=== PATIENT | female | born 1990 | race Caucasian/White ===

== ENCOUNTER → 2016-11-25 | Outpatient (REF) | payer BC ==
[~2016-11-25] MED LIST: CIPR500T89 PO; FLOM5CAP PO; PERC5TAB6 PO
== END ==
LOC: M LAB REF 20:33
PROVIDERS: ATTEND Physician Assistant Medical
DX: N30.01 Acute cystitis with hematuria (principal)

== ENCOUNTER 2016-11-28 01:16 | Emergency (ER) | payer BC ==
[~2016-11-28] VITALS: Ht 167.6 cm; Wt 111.1 kg
[2016-11-28] MEDS ORDERED: CIPR500T89 PO (01:27)
[2016-11-28] MEDS ORDERED: ONDANSETRON 4MG/2ML VIAL (J2405) IV ONE (04:15)
[2016-11-28] MEDS ORDERED: KETOROLAC 30 MG/ML VIAL (J1885) IV ONE (04:15)
[2016-11-28] MEDS ORDERED: MORPHINE 4 MG/ML 1ML SYRINGE IV PRN (04:15)
[2016-11-28 04:42] LABS: BASO % 0.4 % (0.0-1.0); EOS # 0.3 K/mm3 (0.0-0.50); EOS % 2.4 % (0.0-3.0); LARGE UNSTAINED CELL # 0.2 K/mm3 (0.0-0.4); LARGE UNSTAINED CELL % 1.3 % (0.0-4.0); LYMPH % 17.2 % (24.0-44.0); MEAN CORPUSCULAR HEMOGLOBIN 29.9 pg (27.0-33.0); MEAN CORPUSCULAR VOLUME 83.2 fl (80.0-96.0); MONO # 0.4 K/mm3 (0.0-0.8); MONO % 3.5 % (0.0-5.0); NEUTROPHILS # 8.9 K/mm3 (1.8-7.7); NEUTROPHILS % 75.2 % (36.0-66.0); PLATELET COUNT, AUTOMATED 359 k/mm3 (150-450); RED CELL DISTRIBUTION WIDTH 12.6 % (11.5-14.5); WHITE BLOOD COUNT 11.8 K/mm3 (4.0-10.0)
[2016-11-28 04:59] LABS: ANION GAP 9 MEQ/L (8-16); BLOOD UREA NITROGEN 10 MG/DL (7-18); CALCIUM LEVEL 8.9 MG/DL (8.5-10.1); CARBON DIOXIDE LEVEL 24 MEQ/L (21-32); CHLORIDE LEVEL 106 MEQ/L (98-107); CREATININE FOR GFR 0.92 MG/DL (0.55-1.02); GLOMERULAR FILTRATION RATE > 60.0 (>60); GLUCOSE, FASTING 122 MG/DL (70-105); SODIUM LEVEL 139 MEQ/L (136-145)
[2016-11-28 05:06] LABS: CONTROL LINE HCG INT CTR LINE PRESENT
--- NOTE | 2016-11-28 05:50 | REPUSA ---
CLINICAL HISTORY: Abdominal pain. TECHNIQUE: Multiple axial, sagittal and coronal CT images were obtained through the abdomen and pelvi s without administration of oral or IV contrast material. COMMENTS: 4.5 mm obstructing stone of the left ureter at L3 level. Mild left hydroureteronephrosis. The liver is moderately enlarged with decreased attenuation without mass or defect. There is no intra or extrahepatic biliary ductal dilatation. The spleen is normal. The gallbladder is within normal li mits. The pancreas is of normal contour and attenuation characteristics. There is no evidence of adre nal mass. The kidneys are normal in size, shape and configuration. No renal or right ureteral calculi are ident ified. There is no right hydroureter or hydronephrosis. There is no evidence for appendicitis. There is no bowel wall thickening. No evidence for small or la rge bowel obstruction. There is no evidence of abdominal ascites or lymphadenopathy. There is no evidence of intrinsic or extrinsic bladder mass. There is no pelvic ascites or lymphadeno malcolm. Images of the lung bases show no evidence of pleural or parenchymal mass. There are no pleural effusi ons. The bony structures are free of lytic or blastic lesions. IMPRESSION: Obstructing stone of the left ureter at L3 level. Mild left hydroureteronephrosis. Hepatomegaly with fatty liver infiltration. Thank you for your kind referral of this patient.
[2016-11-28] MEDS ORDERED: PERC5TAB6 PO (06:04)
[2016-11-28] MEDS ORDERED: FLOM5CAP PO (06:04)
[2016-11-28] MEDS ORDERED: KETOROLAC 30 MG/ML VIAL (J1885) As Ordered ONE (06:09)
[2016-11-28] MEDS ORDERED: KETOROLAC 60 MG/2 ML VIAL (J1885) IM ONE (06:15)
[2016-11-28] MEDS ORDERED: TAMSULOSIN 0.4 MG CAP PO ONE (06:15)
[2016-11-28 06:30] VITALS: BP 132/68
== END 2016-11-28 06:31 | disposition home or self-care (01) ==
LOC: M ED 02:38
DX: N20.1 Calculus of ureter (principal); Z79.2 Long term (current) use of antibiotics
CPT/HCPCS: 36415; 74176; 80048; 81001; 84703; 85025; 87040; 87086; 96372; 99283; J1885

== ENCOUNTER 2016-11-30 17:49 | Emergency (ER) | payer BC ==
[~2016-11-30] VITALS: Ht 170.2 cm; Wt 108.9 kg
[2016-11-30 18:35] LABS: BASO % 0.2 % (0.0-1.0); EOS # 0.3 K/mm3 (0.0-0.50); EOS % 2.6 % (0.0-3.0); LARGE UNSTAINED CELL # 0.2 K/mm3 (0.0-0.4); LARGE UNSTAINED CELL % 1.4 % (0.0-4.0); LYMPH # 2.7 K/mm3 (1.5-6.5); LYMPH % 21.5 % (24.0-44.0); MEAN CORPUSCULAR HEMOGLOBIN 29.5 pg (27.0-33.0); MEAN CORPUSCULAR HGB CONC 35.6 g/dl (32.0-36.5); MEAN CORPUSCULAR VOLUME 82.8 fl (80.0-96.0); MONO # 0.5 K/mm3 (0.0-0.8); NEUTROPHILS # 8.8 K/mm3 (1.8-7.7); NEUTROPHILS % 70.3 % (36.0-66.0); PLATELET COUNT, AUTOMATED 345 k/mm3 (150-450); RED CELL DISTRIBUTION WIDTH 12.6 % (11.5-14.5); WHITE BLOOD COUNT 12.6 K/mm3 (4.0-10.0)
[2016-11-30 18:54] LABS: ANION GAP 7 MEQ/L (8-16); BLOOD UREA NITROGEN 9 MG/DL (7-18); CALCIUM LEVEL 8.8 MG/DL (8.5-10.1); CARBON DIOXIDE LEVEL 25 MEQ/L (21-32); CHLORIDE LEVEL 107 MEQ/L (98-107); CREATININE FOR GFR 0.81 MG/DL (0.55-1.02); GLOMERULAR FILTRATION RATE > 60.0 (>60); GLUCOSE, FASTING 93 MG/DL (70-105); POTASSIUM SERUM 3.6 MEQ/L (3.5-5.1); SODIUM LEVEL 139 MEQ/L (136-145)
[2016-11-30] MEDS ORDERED: ONDANSETRON 4MG/2ML VIAL (J2405) IV ONE (19:00)
[2016-11-30] MEDS ORDERED: KETOROLAC 30 MG/ML VIAL (J1885) IV ONE (19:00)
--- NOTE | 2016-11-30 19:00 | REPUSA ---
Clinical history: Renal obstruction. Compariso CT, 11/28/2016. Findings: The urinary bladder is contracted and limited in evaluation. The right kidney measures 11 .2 x 5.1 x 4.2 cm. The left kidney measures 13.4 x 6.1 x 6.3 cm. The kidneys demonstrate normal echot exture and echogenicity. There is no evidence of the nephrolithiasis in the left renal collecting sy stem described on the prior CT study. There is mild left-sided hydronephrosis however. No renal mely s are seen. No free fluid is appreciated. Impression: Mild left-sided hydronephrosis, stable since the prior CT examination. No evidence of nep hrolithiasis.
[2016-11-30] MEDS ORDERED: NAPR500T PO (19:32)
[2016-11-30] MEDS ORDERED: ZOFR4TAB3 PO (19:32)
[2016-11-30 19:40] VITALS: BP 122/59
== END 2016-11-30 19:41 | disposition home or self-care (01) ==
LOC: M ED 18:22
DX: N13.30 Unspecified hydronephrosis (principal); Z87.442 Personal history of urinary calculi; F17.200 Nicotine dependence, unspecified, uncomplicated; Z79.899 Other long term (current) drug therapy
CPT/HCPCS: 76775; 80048; 81001; 85025; 86140; 87086; 99282; J1885; J2405

== ENCOUNTER → 2016-12-02 | Outpatient (CLI) | payer BC ==
[~2016-12-02] MED LIST changes: +NAPR500T PO; +ZOFR4TAB3 PO
[2016-12-02 17:39] LABS: INR 1.02
== END ==
LOC: M LAB 16:35
PROVIDERS: ATTEND Nurse Practitioner Women's Health
DX: N13.2 Hydronephrosis with renal and ureteral calculous obstruction (principal)

== ENCOUNTER → 2016-12-05 | Day surgery (SDC) | payer BC ==
[~2016-12-05] VITALS: Ht 170.2 cm; Wt 108.9 kg
[~2016-12-05] MED LIST changes: +CONRAY-60 60% 50ML VIAL (Q9961) As Ordered ONE; +KETOROLAC 60 MG/2 ML VIAL (J1885) As Ordered ONE; +LIDOCAINE 2% INJ 100 MG/5 ML SDV (FOR ANES.) As Ordered ONE; +LR 1,000 ML IV ONE; +LR 1,000 ML IV SCH; +MIDAZOLAM INJ 2 MG/2 ML VIAL (J2250) As Ordered ONE; +ONDANSETRON 4MG/2ML VIAL (J2405) As Ordered ONE; +ONDANSETRON 4MG/2ML VIAL (J2405) IV PRN; +PERCOCET 5MG/325MG TAB PO PRN; +PROPOFOL 200 MG/20 ML VIAL As Ordered ONE; +dexameTHASONE 4 MG/ML 1ML VIAL (J1100) As Ordered ONE; +fentaNYL 100 MCG/2 ML INJECTION (J3010) As Ordered ONE; +fentaNYL 100 MCG/2 ML INJECTION (J3010) IV PRN
[2016-12-05 14:40] VITALS: BP 137/74
--- NOTE | 2016-12-06 07:38 | RO ---
DATE OF PROCEDURE: 12/05/2016 PREOPERATIVE DIAGNOSIS: Left ureteral stone. POSTOPERATIVE DIAGNOSIS: Left ureteral stone. PROCEDURE: Cystoscopy, left ureteroscopy, left stone basketing and placement of a left Double-J ureteral stent. SURGEON: Dr. Alexandria Castro PLANT CONTR[employer]ER: ANESTHESIA: General. MEDICATIONS: Ancef 2 grams preoperatively. DRAINS: 6-Kinyarwanda universal Double-J ureteral stent. SPECIMEN: Stone for analysis. HISTORY OF PRESENT ILLNESS: The patient is to 25-year-old female who went to the emergency room with left flank pain and was diagnosed with a 4.5 mm left ureteral stone with moderate hydroureter nephrosis. The stone was in the mid ureter. She then came to the emergency room (ER) again on 11/30/2016, but was sent home. She was then seen in our office and scheduled for ureteroscopy and stone manipulation. All options, alternatives, risks, and benefits were discussed and informed consent was obtained in both verbal and written form. DESCRIPTION OF PROCEDURE: The patient was brought into the operating room. Sequential compression devices were in place and preoperative antibiotics had been given. She was then placed in the lithotomy position and careful attention was paid that her pressure points were well padded and protected. She was then prepped and draped in the usual fashion. A 22-Kinyarwanda cystoscope was inserted. The urethra was noted to be open without any evidence of lesions or strictures. Upon entering the bladder, both ureteral orifices were seen. There was no evidence of stones, erythematous patches, lesions or other significant abnormalities. At this point, under fluoroscopic guidance, a guidewire was placed in the left ureteral orifice up to the kidney and left as a safety wire. Next, a rigid ureteroscope was passed and the stone was pushed back into the kidney. At this point, a second wire was passed and then a ureteral reentry catheter was placed over the wire under fluoroscopic guidance. A flexible ureteroscope was then used and I went into the kidney where the stone was well visualized. I was able to grab the stone using a stone basket and remove it completely. Then, a 6-Kinyarwanda universal Double-J ureteral stent was placed and there was an excellent curl seen in the left renal pelvis and down in the bladder. The patient's bladder was emptied and she was returned to the recovery room in stable condition.
== END ==
LOC: M SDC 09:11
PROVIDERS: ATTEND Specialist
DX: N20.1 Calculus of ureter (principal); F17.210 Nicotine dependence, cigarettes, uncomplicated; Z79.899 Other long term (current) drug therapy; Z79.2 Long term (current) use of antibiotics; Z87.442 Personal history of urinary calculi
CPT/HCPCS: 52332; 74420; 82360; 88300; C1726; C1894; C2617; J0690; J1100; J1885; J2250; J2405; J3010; Q9961

== ENCOUNTER 2019-09-29 09:14 | Emergency (ER) | payer BC ==
[~2019-09-29] VITALS: Ht 172.7 cm; Wt 154.4 kg
[~2019-09-29 09:14] MED LIST changes: +CIPR-249 PO; -CIPR500T89 PO; -CONRAY-60 60% 50ML VIAL (Q9961) As Ordered ONE; +FLOM0.4C39 PO; -FLOM5CAP PO; -KETOROLAC 60 MG/2 ML VIAL (J1885) As Ordered ONE; -LIDOCAINE 2% INJ 100 MG/5 ML SDV (FOR ANES.) As Ordered ONE; -LR 1,000 ML IV ONE; -LR 1,000 ML IV SCH; -MIDAZOLAM INJ 2 MG/2 ML VIAL (J2250) As Ordered ONE; +NAPR-837 PO; -NAPR500T PO; -ONDANSETRON 4MG/2ML VIAL (J2405) As Ordered ONE; -ONDANSETRON 4MG/2ML VIAL (J2405) IV PRN; +PERC5TAB12 PO; -PERC5TAB6 PO; -PERCOCET 5MG/325MG TAB PO PRN; -PROPOFOL 200 MG/20 ML VIAL As Ordered ONE; +ZOFR4TAB14 PO; -ZOFR4TAB3 PO; -dexameTHASONE 4 MG/ML 1ML VIAL (J1100) As Ordered ONE; -fentaNYL 100 MCG/2 ML INJECTION (J3010) As Ordered ONE; -fentaNYL 100 MCG/2 ML INJECTION (J3010) IV PRN
[2019-09-29] MEDS ORDERED: [UNRECOGNIZED DRUG - OTHER] PO (09:21)
[2019-09-29] MEDS ORDERED: ALBUTEROL SULFATE 2.5 MG/0.5 ML INH NEB SOLN NEB ONE (09:45)
--- NOTE | 2019-09-29 09:54 | REP ---
PA and lateral chest: There are no comparisons. The lung duke are clear. The cardiac size is normal. The antonio, mediastinum, and skeletal structures are unremarkable. Impression: Negative PA and lateral chest. Electronically Signed by Chris Gomez MD 09/29/2019 09:45 A
[2019-09-29 10:22] LABS: INFLUENZA A AMPLIFICATION NEGATIVE (NEGATIVE); INFLUENZA B AMPLIFICATION NEGATIVE (NEGATIVE)
[2019-09-29] MEDS ORDERED: MEDR4PAK PO (10:25)
[2019-09-29] MEDS ORDERED: BENZ200C70 PO (10:25)
[2019-09-29] MEDS ORDERED: VENTAER INH (10:25)
[2019-09-29 10:32] VITALS: BP 136/76
== END 2019-09-29 10:37 | disposition home or self-care (01) ==
LOC: M ED 09:14
DX: J40 Bronchitis, not specified as acute or chronic (principal); F17.210 Nicotine dependence, cigarettes, uncomplicated

== ENCOUNTER 2021-11-19 15:07 | Emergency (ER) | payer BC, SELFPAY ==
[~2021-11-19] VITALS: Ht 172.7 cm; Wt 148.8 kg
[~2021-11-19 15:07] MED LIST changes: +BENZ200C70 PO; +MEDR4PAK PO; +VENTAER INH; +[UNRECOGNIZED DRUG - OTHER] PO
[2021-11-19] MEDS ORDERED: ACET500P3 PO (15:19)
[2021-11-19] MEDS ORDERED: diphenhydrAMINE 50MG/ML VIAL (J1200) IV STA (18:12)
[2021-11-19] MEDS ORDERED: KETOROLAC 30 MG/ML 1ML VIAL IV ONE (18:15)
[2021-11-19] MEDS ORDERED: METOCLOPRAMIDE INJ 10MG/2ML VIAL (J2765 PER 1) IV ONE (18:15)
[2021-11-19] MEDS ORDERED: NS 1,000 ML IV ONE (18:15)
[2021-11-19 18:54] LABS: BASO % 0.5 % (0.0-1.0); HEMATOCRIT 41.6 % (36.0-47.0); HEMOGLOBIN 13.9 g/dl (12.0-15.5); LYMPH # 0.4 10^3/uL (1.5-5.0); MEAN CORPUSCULAR HEMOGLOBIN 28.3 pg (27.0-33.0); MEAN CORPUSCULAR HGB CONC 33.4 g/dl (32.0-36.5); MEAN CORPUSCULAR VOLUME 84.7 fl (80.0-96.0); MONO # 0.5 10^3/uL (0.0-0.8); MONO % 12.5 % (2.0-8.0); NEUTROPHILS % 74.8 % (36.0-66.0); PLATELET COUNT, AUTOMATED 355 10^3/uL (150-450); RED BLOOD COUNT 4.91 10^6/uL (4.00-5.40)
[2021-11-19] MEDS ORDERED: dexameTHASONE 20MG/5ML VIAL (J1100 PER 1MG) IV ONE (20:15)
[2021-11-19 21:26] VITALS: BP 134/79
== END 2021-11-19 21:28 | disposition home or self-care (01) ==
LOC: M ED 15:07
DX: R51.9 Headache, unspecified (principal); F17.200 Nicotine dependence, unspecified, uncomplicated
CPT/HCPCS: 70450; 80047; 83735; 84702; 85025; 96361; 96374; 96375; 99284; J1100; J1200; J1885; J2765